=== PATIENT | female | born 1975 | race Caucasian/White ===

== ENCOUNTER 2023-09-21 13:12 | Emergency (ER) | payer OTHER, SELFPAY ==
[2023-09-21] VITALS (7 sets, daily range): BP systolic 116–134; BP diastolic 53–96; BMI 30.1
--- NOTE | 2023-09-21 15:15 | ED.GENMED ---
History of Present Illness
General
Chief Complaint: Breathing Problem
Source: patient
Time Seen by Provider: 09/21/23 14:54
History of Present Illness
History of Present Illness:
48yoF with a history of anxiety presenting for evaluation of shortness of breath. Symptoms initially began 2 weeks ago while she was exercising. She continues to have exertional dyspnea over the past few weeks. She states the shortness of breath
will linger even after she is finished exercising. She called her PCP earlier this week due to her symptoms and she was prescribed an albuterol inhaler. The inhaler was initially helping her symptoms but did not seem to help today. She was short of
breath while at work today and decided to come to the ED for evaluation. She also reports pain in her upper back over the past several days. She denies any fevers, cough, chest pain, syncope, leg swelling, calf pain.
Past History
Past History
ED Past Medical History: None and Psychiatric
ED Past Surgical History: None
Social History
Tobacco: Non-smoker
Alcohol: None
Drug: None
Personal: Single
Living: with family
Employment: Employed
Phy Exam
General Physical Exam
General Presentation: well appearing and no apparent distress
General age: appears stated age
General Skin: warm and dry
General Habitus: normal
General Mental: alert
Cardiovascular Exam
Cardiovascular Exam: regular rate/rhythm, no edema and no murmur
Pulmonary Exam
Pulmonary Exam: lungs clear, no respiratory distress, no rales, no crackles, no rhonchi and no wheezing
Musculoskeletal Exam
Musculoskeletal Exam: no edema
Skin Exam
Skin Exam: normal color and warm/dry
Psychiatric Exam
Psychiatric Exam: normal mood/affect
Scores
Heart Failure Risk
Heart Failure Risk Score: Not Applicable
Course
Orders/Labs/Results
Orders:
Orders
09/21/23 15:14
Electrocardiogram (*1) Urgent
Reason for Study: Shortness of Breath
EKG- Treatment ONCE
CR Chest - 2 Views Urgent
Comment:
Reason For Exam: SOB
09/21/23 15:57
Complete Blood Count/With Diff Urgent
Comprehensive Metabolic Panel Urgent
D-Dimer Urgent
Troponin I Urgent
Abnormal Lab Results
09/21/23
15:57
RBC 4.16 L 10^6/uL
(4.20-5.40)
MCH 32.7 H pg
(27.0-31.0)
Monocytes % 10.1 H %
(1.7-9.3)
BUN 24 H mg/dl
(7-17)
09/21/23 15:57
09/21/23 15:57
Vital Signs
Initial and Last Documented VS:
Initial Vital Signs
Temp Pulse Resp BP Pulse Ox
98.1 F 61 20 132/80 100
09/21/23 13:13 09/21/23 13:13 09/21/23 13:13 09/21/23 13:13 09/21/23 13:13
Last Documented Vital Signs
Temp Pulse Resp BP Pulse Ox
99.8 F 66 19 121/76 98
09/21/23 16:04 09/21/23 17:15 09/21/23 17:15 09/21/23 17:00 09/21/23 17:15
MDM/Problems Addressed
Differential Diagnosis Includes:
48yoF here with exertional dyspnea x 2 weeks. Prescribed albuterol by her PCP which is no longer helpful. No hx of asthma. She is afebrile and hemodynamically stable. Oxygen saturation 100% on room air. Lungs clear to auscultation and
respirations nonlabored. Remainder of exam is reassuring. Differential diagnosis includes but is not limited to: Pneumonia, pleural effusion, CHF, ACS, PE, bronchospasm, symptomatic anemia
Initial ED plan: Check cardiac labs, D-dimer, EKG, and chest x-ray.
*EKG
Interpreted by ED Provider?: Yes
EKG Intrepretation Date: 09/21/23
Heart Rate: 52
Rate: bradycardiac
Rhythm: sinus
[place]: normal axis
Interval: normal interval
QRS Pattern: normal QRS
Ischemia: no ischemia
*Critical Care Note
Total Time (30-74mins, 75-104mins- exclusive of procedures): Not Applicable
Update Note
Update Note:
Labs overall unremarkable including normal hemoglobin. D-dimer normal making PE very unlikely. EKG shows sinus bradycardia without ischemic changes and troponin is within normal limits. Chest x-ray is clear. On reassessment, oxygen saturation
remains 99 to 100%. No indication for admission at this time. She was advised to follow-up closely with her PCP for a possible stress test. Strict ED return precautions were discussed. She was discharged in stable condition.
ED Attending Note
-
Portions of this chart may have been created with voice recognition software.� Occasional wrong word or��sound alike� substitutions may have occurred due to the inherent limitations of voice recognition software.
Discharge Plan
Departure
Patient Disposition: Home (Routine Discharge)
Date of Disposition: 09/21/23
Time of Disposition: 17:23
Patient with high blood pressure during this ER visit?: No
Discharge Problem:
Shortness of breath
Instructions: Shortness of Breath (Dyspnea) (DC)
Prescriptions:
No Action
clonazepam 1 MG tablet
1 mg PO DAILY
Multiple Vitamins
1 tab PO DAILY
acetaminophen 325 mg Tablet
650 mg PO Q4HPRN PRN (Reason: Mild Pain / Temp > 101) Qty: 0 0RF
rizatriptan [Maxalt] 10 mg tablet
10 mg PO ONCE MDD 1 PRN (Reason: migraine headache) Qty: 3 0RF
cephalexin 500 mg capsule
500 mg PO QID 7 Days Qty: 28 0RF
fluconazole [Diflucan] 150 mg tablet
150 mg PO ONCE PRN (Reason: yeast infection) Qty: 1 0RF
Referrals:
Olivia Garber CRNP [Family Provider] -
Activity Restrictions/Additional Instructions:
Please call your family doctor tomorrow for follow-up. Return to the ER immediately with any new or worsening symptoms.
Interventions
Interventions:
*Risk Screen - Suicide Last Done: 09/21/23 13:13
*General Assessment Last Done: 09/21/23 13:13
*Neglect/Abuse Screening Last Done: 09/21/23 13:13
ED- Fall Risk Assessment Last Done: 09/21/23 17:33
*ED COVID-19 Vaccine History Last Done: 09/21/23 17:33
*Nursing Disposition Last Done: 09/21/23 17:33
ED- Cardiac Assessment Last Done: 09/21/23 17:33
ED- Pulmonary Assessment Last Done: 09/21/23 17:33
Discharge Date and Time
Discharge Date/Time: 09/21/23 17:34
Print Language: TURKISH
[2023-09-21 16:12] LABS: Hematocrit 38.3 % (37.0-47.0); Hemoglobin 13.6 g/dL (12.0-16.0); Mean Corp Hgb Conc. 35.5 g/dL (33.0-37.0); Mean Corpuscular Hgb 32.7 pg (27.0-31.0); Mean Corpuscular Volume 92.1 fL (81.0-99.0); Mean Platelet Volume 9.4 fL (7.4-10.4); Platelet Count 275 10^3/uL (130-400); Red Blood Cell Count 4.16 10^6/uL (4.20-5.40); Red Cell Dist. Width 12.1 % (11.5-14.5); White Blood Cell Count 6.2 10^3/uL (4.8-10.8)
[2023-09-21 16:23] LABS: ALT (SGPT) 23 U/L (0-35); AST (SGOT) 33 U/L (14-36); Albumin 4.4 g/dl (3.5-5.0); Alkaline Phosphatase 60 U/L (38-126); Blood Urea Nitrogen 24 mg/dl (7-17); Calcium 9.8 mg/dl (8.4-10.2); Carbon Dioxide 26 mmol/L (22-30); Chloride 105 mmol/L (98-107); Estimated Creatinine Clearance 77 ml/min; Glucose 84 mg/dl (70-99); Potassium 4.3 mmol/L (3.5-5.1); Sodium 136 mmol/L (135-145); Total Bilirubin 0.4 mg/dl (0.2-1.3); Total Protein 6.7 g/dl (6.3-8.2); eGFR > 60.00
[2023-09-21 16:33] LABS: D-Dimer < 0.27 ug/mlFEU (0.00-0.50)
[2023-09-21 16:38] LABS: % Basophils 1.3 % (0-2); % Eosinophils 5.4 % (0-6); % Immature Granulocytes 0.2 % (0-0.5); % Lymphocytes 40.7 % (20.5-51.1); % Monocytes 10.1 % (1.7-9.3); % Neutrophils 42.3 % (42.2-75.2); Absolute Basophils 0.1 10^3/uL (0-0.2); Absolute Eosinophils 0.3 10^3/uL (0-0.7); Absolute Lymphocytes 2.5 10^3/uL (1.2-3.4); Absolute Monocytes 0.6 10^3/uL (0.1-0.6); Absolute Neutrophils 2.6 10^3/uL (1.4-6.5); Nucleated Red Blood Cells % 0 %
[2023-09-21 16:39] LABS: Troponin I < 0.012 ng/ml
== END 2023-09-21 17:34 | disposition home or self-care (01) ==
LOC: EMR 13:12
PROVIDERS: Physician Assistant; EMERGENCY PHYSICIAN Student in an Organized Health Care Education/Training Program; FAMILY PHYSICIAN Nurse Practitioner Family
DX: R06.02 Shortness of breath (principal); F41.9 Anxiety disorder, unspecified
CPT/HCPCS: 99285; 71046; 80053; 84484; 85025; 85379; 93005

== ENCOUNTER 2023-10-25 12:26 | Emergency (ER) | payer OTHER, SELFPAY ==
[2023-10-25 12:28] VITALS: BP 115/78
[2023-10-25 13:00] LABS: Urine Albumin Negative (Neg - Trace); Urine Bilirubin Negative (Negative); Urine Character Clear (Clear); Urine Color Straw; Urine Glucose Negative (Negative); Urine Ketone Negative (Negative); Urine Leukocyte Negative (Negative); Urine Nitrite Negative (Negative); Urine Occult Blood Negative (Negative); Urine Urobilinogen Negative (Neg - 1+)
[2023-10-25 13:03] LABS: % Basophils 1.3 % (0-2); % Immature Granulocytes 0.2 % (0-0.5); % Lymphocytes 39.9 % (20.5-51.1); % Monocytes 9.6 % (1.7-9.3); Absolute Basophils 0.1 10^3/uL (0-0.2); Absolute Eosinophils 0.4 10^3/uL (0-0.7); Absolute Lymphocytes 2.2 10^3/uL (1.2-3.4); Absolute Monocytes 0.5 10^3/uL (0.1-0.6); Absolute Neutrophils 2.3 10^3/uL (1.4-6.5); HCG, Serum Qualitative Screen Negative; Hemoglobin 13.7 g/dL (12.0-16.0); Mean Corp Hgb Conc. 35.1 g/dL (33.0-37.0); Mean Corpuscular Hgb 31.4 pg (27.0-31.0); Mean Corpuscular Volume 89.4 fL (81.0-99.0); Mean Platelet Volume 9.5 fL (7.4-10.4); Nucleated Red Blood Cells % 0 %; Platelet Count 303 10^3/uL (130-400); Red Blood Cell Count 4.36 10^6/uL (4.20-5.40); Red Cell Dist. Width 11.7 % (11.5-14.5); White Blood Cell Count 5.4 10^3/uL (4.8-10.8)
[2023-10-25 13:06] LABS: ALT (SGPT) 21 U/L (0-35); AST (SGOT) 28 U/L (14-36); Albumin 4.3 g/dl (3.5-5.0); Alkaline Phosphatase 72 U/L (38-126); Blood Urea Nitrogen 18 mg/dl (7-17); Calcium 9.2 mg/dl (8.4-10.2); Carbon Dioxide 28 mmol/L (22-30); Chloride 101 mmol/L (98-107); Glucose 95 mg/dl (70-99); Potassium 4.5 mmol/L (3.5-5.1); Sodium 137 mmol/L (135-145); Total Bilirubin 0.5 mg/dl (0.2-1.3); Total Protein 6.6 g/dl (6.3-8.2); eGFR > 60.00
[2023-10-25] MEDS: TORADOL 15 MG IV (13:29)
[2023-10-25] MEDS: NSS 1000 IV (13:30)
[2023-10-25 13:33] VITALS: BMI 30.4
--- NOTE | 2023-10-25 13:39 | ED.GENMED ---
History of Present Illness
General
Chief Complaint: Flank Pain
Source: patient
Exam Limitations: none
Time Seen by Provider: 10/25/23 13:10
Nursing documentation reviewed up to this point in time: agreed with
History of Present Illness
History of Present Illness:
48-year-old female with history of acute kidney stones, lithotripsy x 2 states 3 PM yesterday she developed left flank pain which has been persistent, was 10/10 earlier today, is now 7/10. She has had nausea but no vomiting. She denies nausea at
this time. She denies fever or chills. She finished Augmentin twice daily yesterday for a recent UTI.
Past History
Past History
ED Past Medical History: Psychiatric and Other (kidney stones)
ED Past Surgical History: Urological (Lithotripsy)
Social History
Tobacco: Non-smoker
Alcohol: None
Drug: None
Personal: Single
Living: with family
Employment: Employed
Review of Systems
Review of Systems
Allergies reviewed?: Yes
All Other Systems: ROS reviewed and negative except as documented in HPI and ROS
Constitutional: Denies fever or chills
ABD/GI: Reports nausea and diarrhea (from the Augmenting, improving); Denies abdominal pain or vomiting
: Reports flank pain; Denies dysuria, difficulty voiding or urgency
Musculoskeletal: Reports no symptoms
Skin: Reports no symptoms
Neurological: Reports no symptoms
Phy Exam
Physical Exam
Physical Exam:
GENERAL: No acute distress. A&Ox3.
CONSTITUTIONAL: Afebrile.
RESPIRATORY: Regular respirations, nonlabored, lungs clear.
CARDIOVASCULAR: Regular rate and rhythm, no murmurs, no rubs.
GI: Soft, nontender, normal BS. Mild Left flank tenderness to percussion
MUSCULOSKELETAL: Moves with ease. Well perfused.
SKIN: Warm, dry, pink
PSYCH: Normal mood and affect. Well kept, interactive and appropriate
NEUROLOGIC: Awake, alert and oriented. No focal neurological deficits
Course
Orders/Labs/Results
Orders:
Orders
10/25/23 12:30
CT Abd/pel Without Iv Or Oral Urgent
Reason For Exam: kidney stone
10/25/23 12:31
Test Result ONCE
10/25/23 12:39
Complete Blood Count/With Diff Urgent
Comprehensive Metabolic Panel Urgent
HCG, Serum Qualitative Screen Urgent
Urine Culture Reflexed from UA [Urinalysis Reflex To Culture] Urgent
Date Specimen was Collected: 10/25/23
Time Specimen was Collected: 12:30
10/25/23 13:25
0.9% Sodium Chloride 1000 ml [Nss] 1,000 ml IV BOLUS
Ketorolac [Toradol] 15 mg IV NOW STA
Abnormal Lab Results
10/25/23
12:39
MCH 31.4 H pg
(27.0-31.0)
Neutrophils % 42.0 L %
(42.2-75.2)
Monocytes % 9.6 H %
(1.7-9.3)
Eosinophils % 7.0 H %
(0-6)
BUN 18 H mg/dl
(7-17)
10/25/23 12:39
10/25/23 12:39
Vital Signs
Initial and Last Documented VS:
Initial Vital Signs
Temp Pulse Resp BP Pulse Ox
98.4 F 60 20 115/78 99
10/25/23 12:28 10/25/23 12:28 10/25/23 12:10/25/23 12:10/25/23 12:28
Last Documented Vital Signs
Temp Pulse Resp BP Pulse Ox
98.4 F 60 20 141/73 99
10/25/23 12:28 10/25/23 12:28 10/25/23 12:28 10/25/23 15:09 10/25/23 12:28
MDM/Problems Addressed
Differential Diagnosis Includes:
Kidney stone, UTI, pyelonephritis
MDM/Problems Addressed:
48-year-old female with history of acute kidney stones, lithotripsy x 2 states 3 PM yesterday she developed left flank pain which has been persistent, was 10/10 earlier today, is now 7/10. She has had nausea but no vomiting. She denies nausea at
this time. She denies fever or chills.
She finished Augmentin twice daily yesterday for a recent UTI.
Afebrile
CBC normal
CMP normal
Negative for infection
CT abdomen pelvis radiology report reviewed: IMPRESSION:
Punctate nonobstructing stones within the lower and superior pole of the left kidney.
In to re evaluate pt. Neg studies discussed. No recollection of overuse or injury.
Pt OOB twisting, bending to touch toes without eliciting the pain. Deep palpation over posterior 9-10 intercostal space immediately reproduces pain suggesting musculoskeletal pain.
Pt states Toradol helped.
Pt given copy of report
*Critical Care Note
Total Time (30-74mins, 75-104mins- exclusive of procedures): Not Applicable
ED Attending Note
-
Portions of this chart may have been created with voice recognition software.� Occasional wrong word or��sound alike� substitutions may have occurred due to the inherent limitations of voice recognition software.
Discharge Plan
Departure
Patient Disposition: Home (Routine Discharge)
Date of Disposition: 10/25/23
Time of Disposition: 15:09
Patient with high blood pressure during this ER visit?: No
Condition: Good
Discharge Problem:
Acute left flank pain
Instructions: Flank Pain ED, Musculoskeletal Pain
Prescriptions:
No Action
clonazepam 1 MG tablet
1 mg PO DAILY
Multiple Vitamins
1 tab PO DAILY
acetaminophen 325 mg Tablet
650 mg PO Q4HPRN PRN (Reason: Mild Pain / Temp > 101) Qty: 0 0RF
rizatriptan [Maxalt] 10 mg tablet
10 mg PO ONCE MDD 1 PRN (Reason: migraine headache) Qty: 3 0RF
cephalexin 500 mg capsule
500 mg PO QID 7 Days Qty: 28 0RF
fluconazole [Diflucan] 150 mg tablet
150 mg PO ONCE PRN (Reason: yeast infection) Qty: 1 0RF
Referrals:
Olivia Garber CRNP [Non-Admitting Privileges] - As needed
Activity Restrictions/Additional Instructions:
As we discussed, your workup here today shows nothing worrisome.
Try ibuprofen 600 mg, with food, every 6 hours while awake for the 3 days to see if it helps
If you are still having the pain next week, see your family doctor for reevaluation.
Interventions
Interventions:
*Risk Screen - Suicide Last Done: 10/25/23 12:28
*General Assessment Last Done: 10/25/23 12:28
*Neglect/Abuse Screening Last Done: 10/25/23 12:28
ED- Fall Risk Assessment Last Done: 10/25/23 15:15
*ED COVID-19 Vaccine History Last Done: 10/25/23 15:15
*Nursing Disposition Last Done: 10/25/23 15:15
UV-Oylmtw-Ffzhmjtgoy Assessment Last Done: 10/25/23 13:33
ED-Female Genitourinary Assessment Last Done: 10/25/23 15:12
Discharge Date and Time
Print Language: MALDIVIAN
[2023-10-25 15:09] VITALS: BP 141/73
== END 2023-10-25 15:15 | disposition home or self-care (01) ==
LOC: EMR 12:26
PROVIDERS: Emergency Medicine; EMERGENCY PHYSICIAN Emergency Medicine; FAMILY PHYSICIAN Orthopaedic Surgery Sports Medicine
DX: R10.9 Unspecified abdominal pain (principal); Z87.440 Personal history of urinary (tract) infections; Z87.442 Personal history of urinary calculi
CPT/HCPCS: 99284; 74176; 80053; 81003; 84703; 85025

== ENCOUNTER → 2024-07-01 13:24 | Outpatient (REF) | payer OTHER, SELFPAY | LOC: RAD 13:24 | PROVIDERS: ATTENDING PHYSICIAN Physician Assistant | DX: R10.9 Unspecified abdominal pain (principal); Z87.442 Personal history of urinary calculi; R11.0 Nausea | CPT/HCPCS: 76770 ==

== ENCOUNTER → 2024-08-28 15:56 | Outpatient (REF) | payer OTHER, SELFPAY | LOC: RAD 15:56 | PROVIDERS: ATTENDING PHYSICIAN Family Medicine | DX: R10.9 Unspecified abdominal pain (principal); R39.15 Urgency of urination; Z87.442 Personal history of urinary calculi | CPT/HCPCS: 76775 ==

== ENCOUNTER 2024-10-10 17:46 | Outpatient (RCR) | payer OTHER, SELFPAY | END 2024-10-10 23:59 | disposition home or self-care (01) | LOC: RPT 17:46 | PROVIDERS: FAMILY PHYSICIAN Family Medicine | DX: M54.50 Low back pain, unspecified (principal); Z73.6 Limitation of activities due to disability; R26.89 Other abnormalities of gait and mobility; M54.16 Radiculopathy, lumbar region | CPT/HCPCS: 97010; 97110; 97112; 97163 ==